=== PATIENT | female | born 1965 | race Caucasian/White ===

== ENCOUNTER 2022-10-29 07:23 | Emergency (ER) | payer MEDICAID ==
[~2022-10-29] VITALS: Ht 157.5 cm; Wt 113.4 kg
[2022-10-29 07:27] VITALS: BP 139/74
--- NOTE | 2022-10-29 07:29 | NUR ---
BIBA to bed 07
--- NOTE | 2022-10-29 07:35 | NUR ---
56/F BIBA from hotel c/o R arm/shoulder pain x 2 wks s/p fall from bed 2 weeks ago; seen ER DX closed acute comminuted displaced R humeral head/neck fx. Patient A&Ox4, ambulatory with assistance, states no pain management / insulin coverage due to pharmacy out of stock. Right upper arm pain 10/10, sharp/constant, non-radiating. Triage BS 396. adjunct faculty instructor in place. SpO2 93 on room air. Bed locked in lowest position, side rails x 1. PMH: 3 CVAs, VA 04/2022, CHF, DM2, HTN Meds: lasix, coreg, lipitor, insulin, norco NKDA
--- NOTE | 2022-10-29 07:55 | NUR ---
Dr. Romero evaluating pt at bedside
[2022-10-29] MEDS ORDERED: HYDROcodone/APAP 5/325 MG 1 TAB TAB PO ONE (08:00)
[2022-10-29] MEDS ORDERED: KETOROLAC 30 MG/ML VIAL IM ONE ×2 (08:00→09:20)
[2022-10-29] MEDS ORDERED: NACL 0.9% 1,000 ML IV SCH (08:05)
[2022-10-29] MEDS ORDERED: KETOROLAC 30 MG/ML VIAL IVP ONE (08:05)
--- NOTE | 2022-10-29 08:05 | NUR ---
Unsuccessful attempt at IV insertion. Dr. Romero made aware.
--- NOTE | 2022-10-29 08:41 | NUR ---
Lab at bedside
--- NOTE | 2022-10-29 08:54 | NUR ---
Unable to provide urine sample at this time.
[2022-10-29 09:09] LABS: ALBUMIN 2.7 g/dL (3.4-5.0); ANION GAP 13.5 (8-16); CARBON DIOXIDE 26.8 mmol/L (21-32); CREATININE 1.1 mg/dL (0.6-1.3); POTASSIUM 4.3 mmol/L (3.5-5.1); TOTAL BILIRUBIN 0.4 mg/dL (0.0-1.0)
[2022-10-29] MEDS ORDERED: INSULIN REGULAR, HUMAN 100 UNIT/ML VIAL SUBQ ONE (09:20)
--- NOTE | 2022-10-29 09:20 | NUR ---
Pain remains 10/[address] Romero made aware. Orders to be placed.
--- NOTE | 2022-10-29 09:21 | NUR ---
Water cup provided; pt encouraged to void.
--- NOTE | 2022-10-29 09:30 | NUR ---
Patient assisted to supine position and pillow removed. Patient with relief to pain.
--- NOTE | 2022-10-29 09:35 | NUR ---
Pain with 0/10 pain at this time.
[2022-10-29 09:45] LABS: BASOPHILS # (AUTO) 0.1 K/uL (0.00-0.22); BASOPHILS % (AUTO) 0.6 % (0.0-2.0); EOSINOPHILS # (AUTO) 0.2 K/uL (0-0.4); EOSINOPHILS % (AUTO) 1.4 % (0.0-4.0); HEMATOCRIT 34.7 % (36-48); HEMOGLOBIN 10.7 g/dL (12.0-16.0); LYMPHOCYTES # (AUTO) 2.5 K/uL (2.5-16.5); LYMPHOCYTES % (AUTO) 18.3 % (20.5-51.1); MEAN CORPUSCULAR HEMOGLOBIN 22 pg (27-31); MEAN CORPUSCULAR HGB CONC 31 g/dL (33-37); MEAN CORPUSCULAR VOLUME 71.3 fL (80-94); MONOCYTES # (AUTO) 0.9 K/uL (0.8-1.0); MONOCYTES % (AUTO) 6.7 % (1.7-9.3); NEUTROPHILS # (AUTO) 10.1 K/uL (1.8-7.7); PLATELET COUNT (AUTO) 472 K/uL (140-450); RED BLOOD CELL COUNT(AUTO) 4.88 MIL/uL (4.20-5.40); RED CELL DISTRIBUTION WIDTH 16.2 % (11.6-13.7); WHITE BLOOD COUNT (AUTO) 13.8 K/uL (4.8-10.8)
--- NOTE | 2022-10-29 10:00 | NUR ---
Verbal consent given to provide status update with Rosibel Bacon; [phone] Status update given.
--- NOTE | 2022-10-29 11:02 | NUR ---
Patient resting in supine position in position of comfort with both eyes closed. playground monitor in place. Denies pain. Bed locked in lowest position, side rails x 1.
[2022-10-29 11:44] LABS: APPEARANCE,URINE CLEAR (CLEAR); BILIRUBIN,URINE NEGATIVE (NEGATIVE); BLOOD, URINE NEGATIVE (NEGATIVE); COLOR,URINE YELLOW (YELLOW); LEUKOCYTE ESTERASE ,URINE NEGATIVE (NEGATIVE); NITRITE, URINE NEGATIVE (NEGATIVE); UGLUCOSE 3+ (NEGATIVE)
[2022-10-29] MEDS ORDERED: INSU100S22 SUBQ (11:44)
[2022-10-29] MEDS ORDERED: ACET-8905 PO (11:44)
[2022-10-29] MEDS ORDERED: NAPR-1704 PO (11:44)
--- NOTE | 2022-10-29 11:56 | NUR ---
[facility] ETA 10 minutes [place]. Patient ambulatedwith steady/even gait.
[2022-10-29 11:59] VITALS: BP 148/75
--- NOTE | 2022-10-29 12:00 | NUR ---
Patient discharged with v/s stable. Written and verbal after care instructions given and explained for Hyperglycemia, Humerus Fracture Treated with Immobilization. Patient alert, oriented and verbalized understanding of instructions. Ambulatory with steady gait. All questions addressed prior to discharge. ID band removed. Patient advised to follow up with PMD. Rx of Naproxen, Insulin Glargine, Hydrocodone-Acetaminophen 5-325mg given. Patient educated on indication of medication including possible reaction and side effects. Opportunity to ask questions provided and answered.
[2022-10-29 12:21] LABS: RBC,URINE 0-5 /HPF (0-5); WBC,URINE 0-5 /HPF (0-5)
== END 2022-10-29 12:00 | disposition home or self-care (01) ==
LOC: MED 07:23
DX: S42.351A Displaced comminuted fracture of shaft of humerus, right arm, initial encounter for closed fracture (principal); E11.65 Type 2 diabetes mellitus with hyperglycemia; I10 Essential (primary) hypertension; I25.10 Atherosclerotic heart disease of native coronary artery without angina pectoris; Z86.73 Personal history of transient ischemic attack (TIA), and cerebral infarction without residual deficits; Z79.4 Long term (current) use of insulin; Z79.899 Other long term (current) drug therapy; W06.XXXA Fall from bed, initial encounter; Y93.89 Activity, other specified; Y92.89 Other specified places as the place of occurrence of the external cause; Y99.8 Other external cause status
CPT/HCPCS: 36415; 80053; 81001; 85025; 96372; 99284; J1815; J1885